=== PATIENT | male | born 1960 | race Caucasian/White ===

== ENCOUNTER 2019-11-06 12:47 | Emergency (ER) | payer OTHER, SELFPAY ==
[2019-11-06] VITALS (21 sets, daily range): BP systolic 108–128; BP diastolic 78–88; PULSE 70–92; RESP 12–20; TEMP 36.2; O2SAT 94–98
--- NOTE | ~2019-11-06 | CT_ITS ---
EXAMINATION: CT brain wo con, CT cervical spine wo con EXAM DATE: 11/06/2019 13:45 (accession [id number]), 11/06/2019 13:46 (accession [id number]) INDICATION: Syncope. Head injury.. TECHNIQUE: Spiral CT of the head was performed without contrast. Axial, coronal and sagittal images were reviewed. Spiral CT of the cervical spine was performed without contrast. Axial images were rev iewed. Coronal and sagittal reformatted images were also reviewed. The dose-length product (DLP) fo r this examination was 605.33 (accession [id number]), 291.42 (accession [id number]) mGy-cm. The exposure was tailored according to patient size, and iterative reconstruction (ASIR) was used as additional dose reduction technique. There is no prior study for comparison. FINDINGS: HEAD CT: There is no acute intraparenchymal hemorrhage. No evidence of intraparenchymal brain mass l esion. No evidence of acute infarction. 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 There is no mass effect or midline shift. There is no obstructive hydrocephalus susp ected. There are no extra-axial collections. There are no acute calvarial fractures. The orbits ar e unremarkable. Soft tissue is unremarkable. The visualized sinuses and mastoid air cells are well aerated. CERVICAL CT: There is no evidence of acute cervical fracture. The odontoid process is intact. Pre- dens space is normal. Prevertebral soft tissue is normal. There are no soft tissue abnormalities id entified. There is no disc space widening or traumatic vertebral body subluxation suspected. Overal l mild cervical spondylosis. A detailed level by level evaluation of spondylosis can be added as add endum if requested. IMPRESSION: 1. No acute intracranial findings or cervical fracture. Reviewed, dictated and finalized at location A. IMPRESSION: 1. No acute intracranial findings or cervical fracture.
--- NOTE | 2019-11-06 12:55 | ECG_ITS ---
Measurements Intervals [place] Rate: 84 P: 48 [place]: 154 QRS: -19 QRSD: 93 T: 44 QT: 352 QTc: 418 Interpretive Statements SINUS RHYTHM NORMAL ECG Electronically Signed On 11-06-2019 13:43:36 CDT by Camden Venegas D.O.
[2019-11-06 13:16] LABS: Basophils Absolute Auto 0.1 K/mm3 (0.0-0.1); Basophils Percent Auto 0.7 % (0.2-1.2); Eosinophils Absolute Auto 0.1 K/mm3 (0-0.3); Eosinophils Percent Auto 1.3 % (0-4.4); Hematocrit 40.2 % (42.0-52.0); Hemoglobin 14.5 g/dL (14.0-18.0); Immature Granulocyte Absolute 0.02 K/mm3 (0.00-0.031); Immature Granulocyte Percent A 0.3 % (0-0.5); Lymphocytes Absolute Auto 2.23 K/mm3 (0.9-3.2); Lymphocytes Percent Auto 29.7 % (18.3-44.2); Mean Corpuscular HGB Conc 36.1 g/dl (32-36); Mean Corpuscular Hemoglobin 31.7 pg (26-34); Mean Corpuscular Volume 87.8 fl (80-100); Mean Platelet Volume 8.9 fl (7.4-10.4); Monocytes Absolute Auto 0.5 K/mm3 (0.1-0.6); Monocytes Percent Auto 6.8 % (2.6-8.5); Neutrophils Absolute Auto 4.6 K/mm3 (1.3-6.7); Neutrophils Percent Auto 61.2 % (45.5-73.1); Platelet Count Result 287 k/mm3 (150-375); Red Blood Count 4.58 M/mm3 (4.6-6.20); Red Cell Distribution Width 12.1 % (11.5-14.5); White Blood Count 7.5 K/mm3 (4.5-10.0)
[2019-11-06 13:26] LABS: Anion Gap 12 mmol/L (8-16); Blood Urea Nitrogen 22 mg/dL (9-20); Calcium 9.1 mg/dL (8.4-10.2); Carbon Dioxide 22 mmol/L (22-30); Chloride 102 mmol/L (98-107); Estimated CRCL calculation 63 ml/min; Estimated Glomerular Filt Rate > 60; Glucose 111 mg/dL (75-110); Potassium 3.1 mmol/L (3.4-5.0); Sodium 136 mmol/L (137-145)
--- NOTE | 2019-11-06 13:27 | ED.GENADULT ---
HPI - General Adult General Chief complaint: Syncope Stated complaint: syncopal episode Time Seen by Provider: 11/06/19 13:09 Source: patient History of Present Illness HPI narrative: Patient is a 58 y/o male complaining of passing out and fell at work less than 1 hour ago. He states that he was talking to someone at work, then he realized that he was on the ground. He states that he fell and has some abrasion to face and left year. There is no known alleviating or exacerbating factor. He has no chest pain or SOB. He has no focal weakness, numbness or speech difficulty. Related Data Allergies Allergy/AdvReac Type Severity Reaction Status Date / Time No Known Allergies Allergy Unverified 05/14/16 17:23 Review of Systems Constitutional: Constitutional: Denies chills, Denies fever(s), Denies headache(s) and Denies weakness Eyes: Eyes: Denies blurry vision ENT: Denies headache(s) and Denies neck pain Cardiovascular: Cardiovascular: Denies chest pain and Denies dyspnea Respiratory: Respiratory: Denies cough and Denies dyspnea Gastrointestinal: Gastrointestinal: Denies abdominal pain, Denies diarrhea, Denies nausea and Denies vomiting Genitourinary: Genitourinary: Denies hematuria and Denies dysuria Musculoskeletal: Musculoskeletal: Denies back pain and Denies neck pain Integumentary/Breasts: Skin/Breast: Reports other (abrasions) Neurologic: Reports syncope, Denies headache(s) and Denies weakness PMFSH Social History Social History Gender identity (if verbalized by the patient): Male Exam Const: General: no acute distress and well developed Orientation/consciousness: oriented to person, oriented to place, oriented to time and patient oriented x3 HENMT: Head: normocephalic Ears: external ears normal General nose exam: Normal external nose present Eyes: General: appearance normal, both eyes and all related structures Conjunctivae: conjunctivae normal Neck: Neck: normal visual inspection and full ROM Chest: Chest palpation & inspection: normal inspection of the chest and no tenderness Resp: Effort & Inspection: normal respiratory effort Auscultation: clear to auscultation bilaterally Cardio: Rate: regular rate Rhythm: regular rhythm GI: GI Palp: No abdominal tenderness and Yes Soft to palpation Skin: General skin exam: normal color and turgor normal Trauma: abrasion (face, left ear) Neuro: General: oriented to person, oriented to place, oriented to time and patient oriented x3 Cranial nerves: Yes CN's II-XII intact bilaterally Cognition (Neuro): normal cognition Speech: normal speech Motor exam (neuro): 5/5 motor strength present throughout Sensory Exam: normal sensation Coordination: [id number] test normal and [id number] test normal Extrem: General: normal to inspection, full ROM and no pedal edema Psych: Appearance: grossly normal Mental Status: mental status grossly normal Affect: normal affect Course Reevaluation(s) Reevaluation #1: Discussed with patient about test results. Advised patient to be admitted for observation. However, patient does not want to be admitted. Instructed patient to return if his condition worsenes. Date: 11/06/19 Time: 16:25 Vital Signs Vital signs: Vital Signs Temperature 36.2 C L 11/06/19 12:55 Pulse Rate 91 11/06/19 12:55 Respiratory Rate 12 11/06/19 12:55 Blood Pressure 108/79 11/06/19 12:55 Pulse Oximetry 94 11/06/19 12:55 Temperature 36.2 C L 11/06/19 12:55 Pulse Rate 72 11/06/19 16:31 Respiratory Rate 14 11/06/19 16:31 Blood Pressure 116/81 11/06/19 16:31 Pulse Oximetry 94 11/06/19 16:31 Medical Decision Making Vital Signs Vital Signs: Vital Signs Temperature 36.2 C L 11/06/19 12:55 Pulse Rate 91 11/06/19 12:55 Respiratory Rate 12 11/06/19 12:55 Blood Pressure 108/79 11/06/19 12:55 Pulse Oximetry 94 11/06/19 12:55 Temperature 36.2 C L 11/06/19 12:55 Pulse Rate 72 11/06/19 16
[2019-11-06] MEDS: POTASSIUM CHLORIDE 20 MEQ TABLET 40 MEQ PO (15:35)
[2019-11-06] MEDS: TETANUS,DIPHTHERIA,AC PERTUSSIS ADULT (0.5 ML) BOOSTRIX IM (16:50)
== END 2019-11-06 17:02 | disposition home or self-care (01) ==
PROVIDERS: Emergency Medicine; Emergency Provider Emergency Medicine
DX: R55 Syncope and collapse (principal); S00.81XA Abrasion of other part of head, initial encounter; S00.412A Abrasion of left ear, initial encounter; W18.39XA Other fall on same level, initial encounter; Z23 Encounter for immunization
CPT/HCPCS: 36415; 70450; 72125; 80048; 85025; 90471; 90715; 93005; 99284; A9270